=== PATIENT | female | born 1985 | race Caucasian/White ===

== ENCOUNTER 2021-03-25 09:20 | Emergency (ER) | payer OTHER ==
[~2021-03-25 09:20] MED LIST: NAPROSYN500 MG PO; PHENERGAN 25 MG25 M1 PO
== END 2021-03-25 11:20 | disposition home or self-care (01) ==
LOC: ER1 09:20
DX: O99.891 Other specified diseases and conditions complicating pregnancy (principal); R10.10 Upper abdominal pain, unspecified; O16.1 Unspecified maternal hypertension, first trimester; O99.611 Diseases of the digestive system complicating pregnancy, first trimester; K21.9 Gastro-esophageal reflux disease without esophagitis; Z90.89 Acquired absence of other organs; Z79.899 Other long term (current) drug therapy; O99.331 Smoking (tobacco) complicating pregnancy, first trimester; F17.200 Nicotine dependence, unspecified, uncomplicated; Z87.442 Personal history of urinary calculi; Z3A.09 9 weeks gestation of pregnancy
CPT/HCPCS: 81001; 99284

== ENCOUNTER 2021-06-12 19:57 | Emergency (ER) | payer OTHER | END 2021-06-12 23:20 | disposition home or self-care (01) | LOC: ER1 19:57 | DX: J20.9 Acute bronchitis, unspecified (principal); F17.200 Nicotine dependence, unspecified, uncomplicated; Z20.822 Contact with and (suspected) exposure to COVID-19 | CPT/HCPCS: 0240U; 71045; 99285 ==